=== PATIENT | male | born 1950 | race Caucasian/White ===

== ENCOUNTER 2018-09-20 20:00 | Emergency (ER) | payer OTHER ==
[2018-09-20] MEDS ORDERED: NS 1,000 ML IV ONE (20:02)
[2018-09-20] MEDS ORDERED: METOCLOPRAMIDE 10 MG/2 ML VIAL IVP ONE (20:02)
--- NOTE | 2018-09-20 20:04 | EDPHY ---
H & P Time Seen by Provider: 09/20/18 20:00 HPI/ROS: CHIEF COMPLAINT: Near-syncope HISTORY OF PRESENT ILLNESS: The patient is a 67-year-old man who was at a concert tonight and had a marijuana Brownie. He does not typically use marijuana. About an hour and half later he began feeling lightheaded and dizzy and nauseous. He did not faint. No chest pain. No shortness of breath. EMS was called and gave him 4 of Zofran and 150 cc of fluid and brought him to the emergency department. He is feeling much better. He denies history of cardiac disease. No seizure-like activity. Severity: Moderate Modifying factors: Medications REVIEW OF SYSTEMS: Constitutional: denies: chills, fever, recent illness, recent injury EENTM: denies: blurred vision, double vision, nose congestion Respiratory: denies: cough, shortness of breath Cardiac: denies: chest pain, irregular heart rate, lightheadedness, palpitations Gastrointestinal/Abdominal: denies: abdominal pain, diarrhea, nausea, vomiting, blood streaked stools Genitourinary: denies: dysuria, frequency, hematuria, pain Musculoskeletal: denies: joint pain, muscle pain Skin: denies: lesions, rash, jaundice, bruising Neurological: denies: headache, numbness, paresthesia, tingling, dizziness, weakness Hematologic/Lymphatic: denies: blood clots, easy bleeding, easy bruising Immunologic/allergic: denies: HIV/AIDS, transplant 10 systems reviewed and negative except as noted EXAM: GENERAL: Slightly pale and in moderate distress. HEAD: Atraumatic, normocephalic. EYES: Pupils equal round and reactive to light, extraocular movements intact, sclera anicteric, conjunctiva are normal. ENT: TMs normal, nares patent, oropharynx clear without exudates. Moist mucous membranes. NECK: Normal range of motion, supple without lymphadenopathy or JVD. LUNGS: Breath sounds clear to auscultation bilaterally and equal. No wheezes rales or rhonchi. HEART: Regular rate and rhythm without murmurs, rubs or gallops. ABDOMEN: Soft, nontender, normoactive bowel sounds. No guarding, no rebound. No masses appreciated. BACK: No CVA tenderness, no spinal tenderness, step-offs or deformities EXTREMITIES: Normal range of motion, no pitting or edema. No clubbing or cyanosis. NEUROLOGICAL: Cranial nerves II through XII grossly intact. Normal speech, normal gait. 5/5 strength, normal movement in all extremities, normal sensation , normal reflexes PSYCH: Normal mood, normal affect. SKIN: Warm, dry, normal turgor, no visible rashes or lesions. Source: Patient, EMS Exam Limitations: Intoxication - Medical/Surgical History Hx Asthma: No Hx Chronic Respiratory Disease: No Hx Diabetes: No Hx Cardiac Disease: No Hx Renal Disease: No Hx Cirrhosis: No Hx Alcoholism: No Hx HIV/AIDS: No Hx Splenectomy or Spleen Trauma: No Other PMH: prostate CA - Family History Significant Family History: No pertinent family hx - Social History Smoking Status: Never smoked Alcohol Use: Sober Drug Use: Marijuana Constitutional: Initial Vital Signs Temperature (C) 36.3 C 09/20/18 20:00 Heart Rate 65 09/20/18 20:00 Respiratory Rate 18 09/20/18 20:00 Blood Pressure 124/69 H 09/20/18 20:00 O2 Sat (%) 100 09/20/18 20:00 O2 Delivery Mode Room Air O2 (L/minute) 2 Allergies/Adverse Reactions: codeine Allergy (Verified 09/20/15 15:31) gluten Allergy (Verified 09/20/15 15:31) Home Medications: Medication Instructions Recorded NK [No Known Home Meds] 09/20/18 Medical Decision Making - Diagnostics EKG Interpretation: An EKG obtained and was read and documented in trace view. Please see trace view for full reading and report. Sinus rhythm, no acute ischemic changes Imaging: Discussed imaging studies w/ square dance caller Radiologist ED Course/Re-evaluation: 10:15 p.m. the patient is easily arousable. He states that he is feeling better but would like to sleep a little longer. We will continue to observe. 11:00 p.m. Care transferred to Dr. Copeland. Patient is improving and will begin looking for arrived home. His left is car at the concert. Differential Diagnosis: Partial list of the Differential diagnosis considered include but were not limited to; marijuana intoxication, alcohol intoxication, syncope and although unlikely based on the history and physical exam, I also considered arrhythmia, acute coronary disease, CVA. I discussed these differential diagnoses and the plan with the patient as well as the usual and expected course. The patient understands that the diagnosis is provisional and that in medicine we are not always correct and that further workup is often warranted. Usual and customary warnings were given. All of the patient's questions were answered. The patient was instructed to return to the emergency department should the symptoms at all worsen or return, otherwise to followup with the physician as we discussed. - Data Points Laboratory Results: Laboratory Results 09/20/18 20:10 09/20/18 20:10 Medications Given: Discontinued Medications Sodium Chloride (Ns) 1,000 mls @ 0 mls/hr IV EDNOW ONE; Wide Open PRN Reason: Protocol Stop: 09/20/18 20:03 Last Admin: 09/20/18 20:24 Dose: 1,000 mls Metoclopramide HCl (Reglan Injection) 10 mg IVP EDNOW ONE Stop: 09/20/18 20:03 Last Admin: 09/20/18 20:24 Dose: 10 mg Departure - Departure Disposition: Home, Routine, Self-Care Clinical Impression: Cannabis overdose Qualifiers: Encounter type: initial encounter Injury intent: accidental or unintentional Qualified Code(s): T40.7X1A - Poisoning by cannabis (derivatives), accidental ( unintentional), initial encounter Condition: Fair Instructions: Cannabis Abuse (ED) Referrals: Patient,NotPresent [Unknown] - As per Instructions [facility],. [Clinic] - As per Instructions
--- NOTE | 2018-09-20 20:22 | CPEKG ---
Test Reason : OPEN Blood Pressure : / mmHG Vent. Rate : 066 BPM Atrial Rate : 066 BPM P-R Int : 130 ms QRS Dur : 086 ms QT Int : 427 ms P-R-T Axes : 071 -33 038 degrees QTc Int : 448 ms Sinus rhythm Inferior infarct, old Confirmed by Ranjit Gong ([id number]) on 09/20/2018 8:21:35 PM Referred By: Confirmed By:Ranjit Gong
[2018-09-20 20:23] LABS: PLATELET COUNT 278 10^3/uL (150-400)
[2018-09-21 00:01] VITALS: BP 123/56
== END 2018-09-21 00:18 | disposition home or self-care (01) ==
LOC: EDUNIT#
DX: T40.7X1A Poisoning by cannabis (derivatives), accidental (unintentional), initial encounter (principal); E86.9 Volume depletion, unspecified; Z85.46 Personal history of malignant neoplasm of prostate
CPT/HCPCS: 93005; 96361; 96374; 99284; J2765; G0480